=== PATIENT | female | born 1935 | race Caucasian/White ===

== ENCOUNTER 2016-05-10 15:57 | Emergency (ER) | payer MEDICARE, OTHER ==
[~2016-05-10] VITALS: Ht 157.5 cm; Wt 89.0 kg
[~2016-05-10 15:57] MED LIST: ADV50050 INH; CIPR500T4 PO; DILT180C75 PO; FURO-110 PO; GABA100C14 PO; LEVO137T3 PO; LISI-524 PO; MELO-109 PO; Montelukast Sodium PO; NIT4 SL; RIVA20TA PO
[2016-05-10 16:14] VITALS: Ht 157.5 cm; Wt 89.0 kg
== END 2016-05-10 21:49 | disposition left against medical advice (07) ==
LOC: E/R 15:57
DX: Z53.21 Procedure and treatment not carried out due to patient leaving prior to being seen by health care provider (principal)

== ENCOUNTER → 2016-07-13 | Outpatient (CLI) | payer MEDICARE, OTHER ==
[2016-07-13 17:15] LABS: CALCIUM 9.5 mg/dl (8.4-10.2); CREATININE 0.96 mg/dl (0.44-1.00); POTASSIUM 3.8 mmol/L (3.5-5.1)
== END | disposition home or self-care (01) ==
LOC: LAB 16:05
PROVIDERS: ATTEND Internal Medicine Interventional Cardiology
DX: I50.9 Heart failure, unspecified (principal)
CPT/HCPCS: 80048; 83880

== ENCOUNTER 2017-05-25 15:44 | Inpatient (IN) | END 2017-05-26 11:50 | disposition home or self-care (01) | DRG 202 ==

== ENCOUNTER 2018-04-07 16:32 | Emergency (ER) | payer MEDICARE, OTHER ==
[~2018-04-07] VITALS: Ht 152.4 cm; Wt 96.4 kg
[~2018-04-07 16:32] MED LIST changes: +ADV25050 INH; -ADV50050 INH; +APIX5TAB PO; -CIPR500T4 PO; -DILT180C75 PO; -FURO-110 PO; +LAS20 PO; -LEVO137T3 PO; +LEVO137T30 PO; -LISI-524 PO; -MELO-109 PO; +MELO7.5T38 PO; +MONT10TA21 PO; -Montelukast Sodium PO; -NIT4 SL; -RIVA20TA PO
[2018-04-07 16:37] VITALS: Ht 152.4 cm; Wt 96.4 kg
[2018-04-07] MEDS ORDERED: METHYLPREDNISOLONE 125 MG INJ IM STA (18:05)
[2018-04-07] MEDS ORDERED: IPRATROPIUM (NEB) 0.5 MG/2.5 ML AMP INH STA (18:05)
[2018-04-07] MEDS ORDERED: ALBUTEROL 0.5% (NEB) 2.5 MG/0.5 ML AMP INH STA (18:05)
--- NOTE | 2018-04-07 18:12 | ERD ---
ER Documentation Chief Complaint Chief Complaint pt bib family with c/o sob for 2 days, pt states worse with exertion HPI This is an 82-year-old female with a history of hypertension and asthma. For the past 48 hours the patient states she has been having severe difficulty breathing. She is utilizing her inhaler several times but this is not improved her symptoms. She has now also developed a productive cough with whitish sputum. She said no fevers or shaking or chills. She denies any swelling of her lower extremities and no shortness of breath at rest or exertion contrary to the triage note. The patient states her dyspnea is similar to previous asthma exacerbations. She is never required intubation in the past nor has she had any recent hospitalizations in the past year for asthma. ROS All systems reviewed and are negative except as per history of present illness. Medications Home Meds Active Scripts Furosemide (Lasix) 20 Mg Tab, 20 MG PO DAILY for 30 Days, #30 TAB Prov:JAMARCUS MAGAÑA MD 05/26/17 Salmeterol Xinaf/Fluticasone* (Advair*) 250-50 Diskus Inhaler, 1 INH INH BID for 30 Days, #1 Prov:JAMARCUS MAGAÑA MD 05/26/17 Levothyroxine Sodium* (Synthroid*) 137 Mcg Tablet, 137 MCG PO BEFORE BREAKFAST for 30 Days, #30 TAB 3 Refills Prov:JAMARCUS MAGAÑA MD 05/26/17 Apixaban* (Eliquis*) 5 Mg Tablet, 5 MG PO BID for 30 Days, #60 TAB 1 Refill Blood thinner for atrial fibrillation Prov:JAMARCUS MAGAÑA MD 05/26/17 Reported Medications Montelukast Sodium* (Singulair*) 10 Mg Tablet, 10 MG PO QHS, #30 TAB 05/23/17 Meloxicam* (Meloxicam*) 7.5 Mg Tablet, 7.5 MG PO BID, #30 TAB 05/23/17 Gabapentin* (Gabapentin*) 100 Mg Capsule, 200 MG PO QHS, CAP 07/03/14 Allergies Allergies: Coded Allergies: No Known Allergy (Unverified , 07/03/14) PMhx/Soc History of Surgery: Yes (both knee sx and carpal tunnel both hands, hysterectomy) Anesthesia Reaction: No Hx Neurological Disorder: No Hx Respiratory Disorders: Yes (asthma) Hx Cardiac Disorders: No Hx Psychiatric Problems: No Hx Miscellaneous Medical Probl: Yes (admitted w chest pain and SOB. PMH of asthma, CHF, GERD, high cholesterol, ) Hx Alcohol Use: No Hx Substance Use: No Hx Tobacco Use: No Smoking Status: Never smoker Physical Exam Vitals Vital Signs Date Temp Pulse Resp B/P (MAP) Pulse Ox O2 O2 Flow FiO2 Time Delivery Rate 04/07/18 66 18 95/81 (86) 94 Room Air 18:05 04/07/18 97.8 69 24 154/73 95 16:37 (100) Physical Exam Constitutional:Well-developed. Well-nourished. Mild respiratory distress HEENT:Normocephalic. Atraumatic.Pupils were equal round reactive to light. Moist mucous membranes.No tonsillar exudates. Neck: No nuchal rigidity. No lymphadenopathy. No posterior cervical spine tenderness or step-offs. Respiratory: Not using accessory muscles of respiration.Lungs were clear to auscultation bilaterally. No rhonchi. No rales. Wheezing on end auscultation bilaterally. Patient able to speak in full complete sentences Cardiovascular: Regular rate regular rhythm.No murmurs. No rubs were appreciated.S1, S2 normal. Distal pulses are palpable 2+ bilaterally. GI: Abdomen was soft. Nontender. Non Distended. No pulsatile abdominal masses or bruits. No rebound. No guarding. Bowel sounds were present and normal. Muscle skeletal: Full range of motion of both the upper and lower extremities bilaterally.Normal muscle tone.No assymetrical calf tenderness or swelling. Skin: No petechia, no purpura. No lesions on the palms or the soles of the feet. No maculopapular rash. NEURO: Patient was alert, awake, orientated x3.No facial droop. Gait observed and normal with no ataxia.Speech had regular rate and rhythm. No focal neurological deficits. Results 24 hrs Current Medications Medications Dose Sig/Annamarie Start Time Status Last (Trade) Ordered Route PRN Stop Time Admin Dose Reason Admin Albuterol 10 mg ONCE STAT 04/07/18 DC (Proventil INH 18:05 0.5% (Neb)) 04/07/18 18:07 Ipratropium 1 mg ONCE STAT 04/07/18 DC [place] INH 18:05 (Atrovent 04/07/18 18:07 0.02% (Neb)) 125 mg ONCE STAT 04/07/18 DC Methylprednis IM 18:05 olone Sodium 04/07/18 18:07 Succinate (Solu-Medrol) Procedures/MDM The patient presented to the emergency department with dyspnea. My differential diagnosis included but was not limited to upper airway obstruction, CHF, pulmonary embolism, cardiac ischemia, pneumonia, pneumothorax, anemia, drug overdose, pulmonary edema, COPD or asthma. The patient had poor peripheral vascular access at this time was requesting no further attempts at IV placement. Therefore the patient was given Solu-Medrol intramuscularly. She was given a continuous nebulizer treatment of albuterol and Atrovent. Chest radiograph showed no evidence of infiltrates or pneumothorax. Upon reevaluation after the nebulizer treatment the patient was no longer wheezing, satting at 100% and felt comfortable being discharged home. I will discharge the patient home with azithromycin for suspected acute bronchitis. The patient was discharged home in fair condition. They were instructed to return to the emergency department at any time if there was any worsening of their condition. The patient stated they would follow up with their PCP in the next 24-48 hours to initiate a suitable medication regimen under the care of their PCP as well as to allow their PCP to monitor any drug reactions. The patient was discharged home with prescriptions after they gave informed consent to the new medication. They were also fully informed by myself on the adverse effects and adverse drug interactions in order to provide adequate safeguards to prevent possible adverse reactions to medications. Departure Diagnosis: Primary Impression: Asthma exacerbation Asthma severity: mild Asthma persistence: intermittent Qualified Codes: J45.21 - Mild intermittent asthma with (acute) exacerbation Condition: Fair YENI ANTOINE MD Apr 07, 2018 18:12
[2018-04-07] MEDS ORDERED: ALBU8.5H8 INH (18:13)
[2018-04-07] MEDS ORDERED: AZIT250T PO (18:13)
[2018-04-07] MEDS ORDERED: PRED20TA PO (18:13)
[2018-04-07] MEDS ORDERED: FLUT12HF4 IH (19:47)
[2018-04-07 19:49] VITALS: BP 108/76; PULSE 68; RESP 18
== END 2018-04-07 19:49 | disposition home or self-care (01) ==
LOC: E/R 16:32
DX: J45.21 Mild intermittent asthma with (acute) exacerbation (principal); I11.0 Hypertensive heart disease with heart failure; I50.9 Heart failure, unspecified
CPT/HCPCS: 71045; 80053; 82550; 82553; 83880; 84484; 85025; 85610; 85730; 87040; 94645; 96372; 99284; J2930